=== PATIENT | male | born 1995 | race African-American/Black ===

== ENCOUNTER 2016-10-31 13:16 | Emergency (ER) | payer SELFPAY ==
[2016-10-31 13:23] VITALS: BMI 21.7
[2016-10-31 13:42] LABS: AUTOMATED BASOPHIL 0.3 % (0-2); AUTOMATED EOSINOPHIL 0.7 % (0-5); AUTOMATED LYMPH 10.3 % (17-44); AUTOMATED MONOCYTE 6.9 % (3-10); AUTOMATED NEUTROPHIL 81.8 % (45-76); MPV 8.1 fL (7.4-10.4)
[2016-10-31 13:55] LABS: BLOOD UREA NITROGEN 12 MG/DL (9-20); CALCIUM 9.9 MG/DL (8.4-10.2); CALCULATED OSMOLALITY 271 MOs/Kg (270-290); CHLORIDE 104 mEq/L (98-107); GLUCOSE 105 MG/DL (70-99); SODIUM LEVEL 141 mEq/L (137-146); TOTAL PROTEIN 7.4 G/DL (6.3-8.2)
[2016-10-31 14:13] LABS: RBC/URINE 0-2 (0-2)
[2016-10-31 14:15] LABS: LEUKOCYTES/URINE NEG (NEGATIVE); NITRITE/URINE NEG (NEGATIVE); URINE OCCULT BLOOD NEG (NEG/TRACE)
[2016-10-31] MEDS ORDERED: NS 2,000 ML IV ONE (14:19)
[2016-10-31] MEDS ORDERED: MORPHINE 4 MG/ML INJECTION IV ONE (14:20)
[2016-10-31] MEDS ORDERED: ONDANSETRON HCL 4 MG/2 ML VIAL IV ONE ×2 (14:20→15:53)
--- NOTE | 2016-10-31 14:55 | EDPRACDOC ---
- General Information Chief Complaint: Abdominal Pain Stated Complaint: ABDOMINAL PAIN Time Seen by Provider: 10/31/16 14:17 Information Source: Patient Mode Of Arrival: Car Home Medications: Home Medications No Home Medications 09/23/12 Hydrocodone Bit/Acetaminophen [Hydrocodon-Acetaminophen 5-325] 1 tab PO Q6 PRN # 15 tab 10/31/16 Ondansetron [Zofran Odt] 4 mg PO Q6H PRN #20 tab.rapdis 10/31/16 Allergies/Adverse Reactions: Allergies Allergy/AdvReac Type Severity Reaction Status Date / Time No Known Allergies Allergy Verified 10/31/16 13:20 - History of Present Illness Onset: today HPI: PT PRESENTS WITH NAUSEA AND VOMITING AFTER EATING LUNCH. STATES HE ATE [employer] AND BEGAN HAVING GENERALIZED ABDOMINAL PAIN, THEN BEGAN TO VOMIT AND HAS HAD MULTIPLE EPISODES OF VOMIT SINCE THAT TIME. PT DIAPHORETIC AND VOMITING AT TIME OF EXAM. DENIES DIARRHEA. NO PREVIOUS ABDOMINAL SURGERY Pain Location: Reports: Diffuse Pain Context: Reports: After Eating Pain Severity: Moderate Pain Quality: Reports: Sharp, Stabbing Pain Radiation: Reports: No Radiation Adult Abdominal History: Denies: Abdominal Surgery, Urolithiasis, Bowel Obstruction, Similar Pain (dx) Modifying Factors: improves with: Nothing Associated Signs & Symptoms: Reports: Nausea, Vomiting Oral Intake: Decreased Urinary Output: Normal ED Past Medical History - History Reviewed Yes Nurses notes reviewed and agree except as marked - Patient Medical History Psychological History: Denies: Depression - Social Medical History Smoking Status: Never smoker EDM Review of Systems - Review of Systems ROS Negative Except as Marked: Yes All systems reviewed and were negative except as marked - Physical Exam Constitutional: Alert. negative: Well appearing Oriented to: Time, Person, Place Last recorded Vital Signs: Last Vital Signs Temp 100 F 10/31/16 15:40 Pulse 93 10/31/16 15:38 Resp 18 10/31/16 15:38 BP 126/61 10/31/16 15:38 Pulse Ox 95 10/31/16 15:38 Oxygen Pulse Oxygen Saturation 95 O2 Device Room Air Oxygen Flow Rate Fraction of Inspired Oxygen ( FIO2) - HEENT Head: Normal ( normocephalic) Eye Exam: Normal (PERRL, EOMI, Sclera white) Oropharynx: Normal (Pharynx:Moist without exudate,Gums-no swelling) Nose: No Symptoms Reported (septum midline) Neck: Normal (FROM, trachea at midline) - Respiratory/Cardiovascular Respiratory: Normal - CTA (BBS clear to auscultation without adventitious sounds ) Cardiovascular: Normal (RRR without murmur, gallop or rub) - GI Auscultation: Normal (NABS) Palpation: Normal (Soft,No rebound or guarding, non distended) Tenderness: Diffuse, Moderate Russell's Sign: Negative Rectal Exam: Deferred - Musculoskeletal Back: Normal (Non-Tender) Extremities: Normal (Normal tone, Pulses 2+ No cyanosis or edema, FROM) - Integumentary Skin: Normal, Warm, Dry Lymphatics: Normal (no adenopathy) - Neurologic Memory Impaired: Normal Motor Function: Normal (Normal tone, Pulses 2+ No cyanosis or edema, FROM) Cranial Nerve: Normal (CN II-X11 intact sensation, strength 5/5) Cerebellar: Normal Mood Description: Normal Perception: Normal - Differential Diagnosis Cholecystitis, Cholelithiasis - Results All Results Reviewed and Normal except as Highlighted below: Yes 10/31/16 13:33 10/31/16 13:33 WBC 8.8 xk/uL (3.8-10.8) 10/31/16 13:33 RBC 4.78 xM/uL (4.70-6.10) 10/31/16 13:33 Hgb 13.8 g/dL (14.0-18.0) L 10/31/16 13:33 Hct 42.4 % (42-52) 10/31/16 13:33 MCV 89 fL (80-94) 10/31/16 13:33 MCH 28.9 pg (27-32) 10/31/16 13:33 MCHC 32.5 g/dl (33-36) L 10/31/16 13:33 RDW 12.8 % (11.5-14.5) 10/31/16 13:33 Plt Count 247 xk/uL (130-400) 10/31/16 13:33 MPV 8.1 fL (7.4-10.4) 10/31/16 13:33 Neut % (Auto) 81.8 % (45-76) H 10/31/16 13:33 Lymph % (Auto) 10.3 % (17-44) L 10/31/16 13:33 [place] % (Auto) 6.9 % (3-10) 10/31/16 13:33 Eos % (Auto) 0.7 % (0-5) 10/31/16 13:33 Baso % (Auto) 0.3 % (0-2) 10/31/16 13:33 Absolute Neuts (auto) 7.13 xk/uL (1.7-8.2) 10/31/16 13:33 Absolute Lymphs (auto) 0.88 xk/uL (0.65-4.75) 10/31/16 13:33 Sodium 141 mEq/L (137-146) 10/31/16 13:33 Potassium 4.7 mEq/L (3.5-5.1) 10/31/16 13:33 Chloride 104 mEq/L (98-107) 10/31/16 13:33 Carbon Dioxide 27 mMOL/L (22-33) 10/31/16 13:33 Anion Gap 15 mEq/L (8-16) 10/31/16 13:33 BUN 12 MG/DL (9-20) 10/31/16 13:33 Creatinine 0.90 MG/DL (0.66-1.25) 10/31/16 13:33 Estimated GFR (MDRD) > 60 mL/min (>=60) 10/31/16 13:33 Glucose 105 MG/DL (70-99) H 10/31/16 13:33 Calculated Osmolality 271 MOs/Kg (270-290) 10/31/16 13:33 Calcium 9.9 MG/DL (8.4-10.2) 10/31/16 13:33 Total Bilirubin 1.6 MG/DL (0.2-1.3) H 10/31/16 13:33 AST 55 IU/L (17-59) 10/31/16 13:33 ALT 58 IU/L (21-72) 10/31/16 13:33 Alkaline Phosphatase 73 IU/L (38-126) 10/31/16 13:33 Total Protein 7.4 G/DL (6.3-8.2) 10/31/16 13:33 Albumin 4.8 G/DL (3.5-5.0) 10/31/16 13:33 Lipase 82 U/L (23-300) 10/31/16 13:33 Urine Color Yellow 10/31/16 13:23 Urine Clarity Clear 10/31/16 13:23 Urine pH 6.0 (5.0-8.0) 10/31/16 13:23 Ur Specific [place] 1.030 (1.003-1.035) 10/31/16 13:23 Urine Protein Neg (NEG/TRACE) 10/31/16 13:23 Urine Glucose (UA) Neg (NEGATIVE) 10/31/16 13:23 Urine Ketones Neg (NEGATIVE) 10/31/16 13:23 Urine Occult Blood Neg (NEG/TRACE) 10/31/16 13:23 Urine Nitrite Neg (NEGATIVE) 10/31/16 13:23 Urine Bilirubin Neg (NEGATIVE) 10/31/16 13:23 Urine Urobilinogen 0.2 MG/DL (0-1) 10/31/16 13:23 Ur Leukocyte Esterase Neg (NEGATIVE) 10/31/16 13:23 Urine RBC 0-2 (0-2) 10/31/16 13:23 Urine WBC 2-5 (0-2) H 10/31/16 13:23 Ur Epithelial Cells Occ 10/31/16 13:23 Urine Bacteria Few (NEG/FEW) 10/31/16 13:23 Hyaline Casts 0-2 (0-2) 10/31/16 13:23 Urine Mucus Occ (NEG/OCC) 10/31/16 13:23 Monoscreen Neg (NEGATIVE) 10/31/16 13:33 Microbiology 10/31/16 16:12 Influenza Type A Antigen Screen - Final N/P - Naso/Pharyngeal NEGATIVE Please note: A NEGATIVE result does not exclude an influenza virus infection. It is a presumptive result and, if required, confirmation should be done using either a virus culture or an FDA-cleared influenza A&B molecular assay. ("NORMAL" value = "NEGATIVE".) Influenza Type B Antigen Screen - Final NEGATIVE Please note: A NEGATIVE result does not exclude an influenza virus infection. It is a presumptive result and, if required, confirmation should be done using either a virus culture or an FDA-cleared influenza A&B molecular assay. ("NORMAL" value = "NEGATIVE".) Lab Results 10/31/16 10/31/16 10/31/16 13:33 13:33 13:33 WBC 8.8 RBC 4.78 Hgb 13.8 L Hct 42.4 MCV 89 MCH 28.9 MCHC 32.5 L RDW 12.8 Plt Count 247 MPV 8.1 Neut % (Auto) 81.8 H Lymph % (Auto) 10.3 L [place] % (Auto) 6.9 Eos % (Auto) 0.7 Baso % (Auto) 0.3 Absolute Neuts (auto) 7.13 Absolute Lymphs (auto) 0.88 Sodium Potassium Chloride Carbon Dioxide Anion Gap BUN Creatinine Estimated GFR (MDRD) Glucose Calculated Osmolality Calcium Total Bilirubin AST ALT Alkaline Phosphatase Total Protein Albumin Lipase 82 Urine Color Urine Clarity Urine pH Ur Specific [place] Urine Protein Urine Glucose (UA) Urine Ketones Urine Occult Blood Urine Nitrite Urine Bilirubin Urine Urobilinogen Ur Leukocyte Esterase Urine RBC Urine WBC Ur Epithelial Cells Urine Bacteria Hyaline Casts Urine Mucus Monoscreen Neg 10/31/16 10/31/16 13:33 13:23 WBC RBC Hgb Hct MCV MCH MCHC RDW Plt Count MPV Neut % (Auto) Lymph % (Auto) [place] % (Auto) Eos % (Auto) Baso % (Auto) Absolute Neuts (auto) Absolute Lymphs (auto) Sodium 141 Potassium 4.7 Chloride 104 Carbon Dioxide 27 Anion Gap 15 BUN 12 Creatinine 0.90 Estimated GFR (MDRD) > 60 Glucose 105 H Calculated Osmolality 271 Calcium 9.9 Total Bilirubin 1.6 H AST 55 ALT 58 Alkaline Phosphatase 73 Total Protein 7.4 Albumin 4.8 Lipase Urine Color Yellow Urine Clarity Clear Urine pH 6.0 Ur Specific [place] 1.030 Urine Protein Neg Urine Glucose (UA) Neg Urine Ketones Neg Urine Occult Blood Neg Urine Nitrite Neg Urine Bilirubin Neg Urine Urobilinogen 0.2 Ur Leukocyte Esterase Neg Urine RBC 0-2 Urine WBC 2-5 H Ur Epithelial Cells Occ Urine Bacteria Few Hyaline Casts 0-2 Urine Mucus Occ Monoscreen Decision Time to Discharge: 18:18 - Departure Disposition: Home Condition: Stable Final Diagnosis: Abdominal pain Instructions: Acute Abdominal Pain (ED) Education/Counseling Given To: Patient Education/Counseling Given Regarding: Diagnosis, Treatment, Prognosis, Follow Up Referrals: None,No Provider [Primary Care Provider] - One Week Prescriptions: New Ondansetron [Zofran Odt] 4 mg PO Q6H PRN #20 tab.rapdis PRN Reason: Nausea/Vomiting Continue Hydrocodone Bit/Acetaminophen [Hydrocodon-Acetaminophen 5-325] 1 tab PO Q6 PRN #15 tab PRN Reason: Pain No Action No Home Medications Additional Instructions: Drink sips of Gatorade every 2-3 minutes while awake. Do NOT drink large volumes of fluid at once. If you vomit, take the nausea-vomiting medicine prescribed, wait ~ 30 minutes, and restart the sipping process. Return to the Emergency Department if you think you are getting dehydrated, have persistent abdominal pain that is unrelenting, have worse or different symptoms, or any concerns.
--- NOTE | 2016-10-31 15:19 | DIRPT ---
CLINICAL DATA: 20-year-old presenting with postprandial vomiting and severe right upper quadrant abdominal pain which began earlier today. EXAM: US ABDOMEN LIMITED - RIGHT UPPER QUADRANT COMPARISON: None. FINDINGS: Gallbladder: No shadowing gallstones or echogenic sludge. No gallbladder wall thickening or pericholecystic fluid. Negative sonographic Russell sign according to the interventional radiology technologist. Common bile duct: Diameter: Approximately 2 mm. Liver: Normal size and echotexture without focal parenchymal abnormality. Patent portal vein with hepatopetal flow. IMPRESSION: Normal examination. Electronically Signed By: August Johnson M.D. On: 10/31/2016 15:16
[2016-10-31] MEDS ORDERED: DIATRIZOATE MEGLMINE/SODIUM 30 ML BOTTLE PO ONE (15:23)
[2016-10-31] MEDS ORDERED: IBUPROFEN 800 MG TAB PO ONE (15:39)
[2016-10-31 15:41] VITALS: TEMP 100
[2016-10-31] MEDS ORDERED: HYDROmorphone 1 MG INJECTION IV ONE (15:53)
[2016-10-31] MEDS ORDERED: Pharmacy Review for Metformin - IV Contrast Given SCH ×2 (16:00)
--- NOTE | 2016-10-31 16:06 | DIRPT ---
CLINICAL DATA: Vomiting, fever EXAM: CHEST 2 VIEW COMPARISON: None. FINDINGS: Cardiomediastinal silhouette is normal in size and configuration. Lungs are clear. Lung volumes are normal. No evidence of pneumonia. No pleural effusion. No pneumothorax. Osseous and soft tissue structures about the chest are unremarkable. IMPRESSION: Normal chest x-ray. Electronically Signed By: Indra Gardner M.D. On: 10/31/2016 16:03
--- NOTE | 2016-10-31 18:06 | DIRPT ---
CLINICAL DATA: Abdominal pain EXAM: CT ABDOMEN AND PELVIS WITH CONTRAST TECHNIQUE: Multidetector CT imaging of the abdomen and pelvis was performed using the standard protocol following bolus administration of intravenous contrast. CONTRAST: 100 cc of Isovue 370 COMPARISON: None. FINDINGS: Lower chest: The lung bases appear clear. No pleural or pericardial effusion. Hepatobiliary: No suspicious liver abnormality identified. There is a tiny low density structure and left lobe of liver which measures 4 mm. Too small to characterize. The gallbladder is normal. No biliary dilatation. Pancreas: Normal appearance of the pancreas. Spleen: The spleen appears normal. Adrenals/Urinary Tract: The adrenal glands are normal. The kidneys are both unremarkable. The urinary bladder is unremarkable. Stomach/Bowel: The stomach is within normal limits. The small bowel loops have a normal course and caliber. No obstruction. Normal appearance of the colon. The appendix is visualized and appears normal. Vascular/Lymphatic: Normal appearance of the abdominal aorta. No enlarged retroperitoneal or mesenteric adenopathy. No enlarged pelvic or inguinal lymph nodes. Reproductive: Prostate gland and seminal vesicles appear normal. Other: There is a trace amount of free fluid noted within the pelvis. No focal fluid collections identified. Musculoskeletal: No aggressive lytic or sclerotic bone lesions identified. IMPRESSION: 1. No acute findings identified within the abdomen or pelvis. No explanation for abdominal pain. Electronically Signed By: Marge Billingsley M.D. On: 10/31/2016 18:04
[2016-10-31 21:30] VITALS: BP 118/70; PULSE 71
== END 2016-10-31 18:49 | disposition home or self-care (01) ==
LOC: EDMC 13:16
DX: R10.9 Unspecified abdominal pain (principal)
CPT/HCPCS: 36415; 71020; 74177; 76705; 80053; 81001; 83690; 85025; 86308; 87804; 96361; 96374; 96375; 96376; 99284; A9698; J1170; J2270; J2405; J3490